=== PATIENT | female | born 1995 ===

== ENCOUNTER 2025-06-28 14:30 | Inpatient (IN) | payer OTHER ==
[~2025-06-28] VITALS: Ht 172.7 cm; Wt 3.6 kg
[2025-06-28 14:30] LABS: BASO % 0.1 % (0.1-1.2); EOS # 0.05 (0.04-0.54); EOS % 0.5 % (0.7-7.0); LYMPH # 1.89 (1.18-3.74); LYMPH % 19.9 % (19.3-53.1); MEAN PLATELET VOLUME 10.00 fl (9.4-12.4); MONO # 0.73 (0.24-0.82); MONO % 7.7 % (4.7-12.5); NEUT # 6.78 (1.56-6.13); NEUT % 71.5 % (34.0-71.1); RED CELL DISTRIBUTION WIDTH 13.4 % (11.6-14.4); URINE APPEARANCE Clear; URINE BILIRRUBIN Negative (NEGATIVE); URINE BLOOD Negative; URINE COLOR Yellow; URINE GLUCOSE Negative (NEGATIVE); URINE KETONE Negative (NEGATIVE); URINE LEUKOCYTE Small; URINE NITRATE Negative; URINE PROTEIN Negative (NEGATIVE); URINE UROBILINOGEN 1.0 E.U./dl
[~2025-06-28 14:30] MED LIST: PRENATABS RX T1 EACH PO
[2025-06-28 14:31] LABS: URINE BACTERIA 988.3 uL (0.0-1933); URINE EPITHELIAL CELLS 45.5 uL (0.0-38.8); URINE RBC 3.1 uL (0.0-20.8); URINE WBC 68.2 uL (0.0-23.2)
[2025-06-28 14:34] LABS: URINE CAST 0.42 uL (0.0-1.40)
[2025-06-28 15:04] LABS: INR 0.96
[2025-06-28 15:12] LABS: ALT/SGPT 25.0 U/L (12-78); AST/SGOT 13.0 U/L (15-37); BILIRUBIN TOTAL 0.46 mg/dL (0.3-1.2); BUN CREA RATIO 14.0 (7.0-25.0); CREATININE SERUM 0.49 mg/dL (0.55-1.02); GFR 147.3; GLOBULINA 3.9 G/DL (2.4-3.5); GLUCOSE FASTING 75.0 mg/dL (65-100); OSMOLALITY SERUM 276.0 MOSM/KG (275-295)
[2025-07-01 05:31] VITALS: BP 128/82
[2025-07-01] MEDS ORDERED: CEFAZOLIN SODIUM 1,000 MG VIAL ONE ×2 (06:41→06:42)
[2025-07-01] MEDS ORDERED: ERYTHROMYCIN BASE OPHT 1GM EACH TUBE OP ONE (07:20)
[2025-07-01] MEDS ORDERED: OXYTOCIN 10 UNITS/ML VIAL ONE (07:20)
[2025-07-01] MEDS ORDERED: MORPHINE SULFATE 4 MG/ML VIAL IV PRN (14:15)
[2025-07-01 18:19] VITALS: BP 131/80
[2025-07-02] VITALS: BP 120/80
[2025-07-02 02:03] LABS: BASO % 0.3 % (0.1-1.2); EOS # 0.09 (0.04-0.54); EOS % 0.9 % (0.7-7.0); LYMPH # 1.75 (1.18-3.74); LYMPH % 16.8 % (19.3-53.1); MEAN PLATELET VOLUME 10.10 fl (9.4-12.4); MONO # 0.83 (0.24-0.82); MONO % 8.0 % (4.7-12.5); NEUT # 7.67 (1.56-6.13); NEUT % 73.7 % (34.0-71.1); RED CELL DISTRIBUTION WIDTH 13.1 % (11.6-14.4)
[2025-07-02 06:39] VITALS: BP 124/80
[2025-07-02 08:19] VITALS: BP 123/80
[2025-07-02] MEDS ORDERED: OxyCODONE HCL 5 MG TABLET (ROXICODONE) PO SCH (09:00)
[2025-07-02 16:00] VITALS: BP 126/80
[2025-07-03] VITALS: BP 115/74
[2025-07-03 08:00] VITALS: BP 112/73
[2025-07-03] MEDS ORDERED: DOCUSATE SODIUM 100MG CAP PO SCH (09:00)
[2025-07-03] MEDS ORDERED: SIMETHICONE 125 MG CAPSULE PO SCH (09:00)
[2025-07-03 18:33] VITALS: BP 127/84
[2025-07-04 00:30] VITALS: BP 111/68
[2025-07-04] MEDS ORDERED: IBUPROFEN800 MG PO (07:50)
[2025-07-04 08:35] VITALS: BP 118/76
== END 2025-07-04 18:04 | disposition home or self-care (01) | DRG 785 ==
LOC: O/R 07-01 05:22 → OB/GYN 07-01 05:22
PROVIDERS: ADMIT Specialist; ATTEND Specialist
PROC: 0UB70ZZ Excision of Bilateral Fallopian Tubes, Open Approach (ICD-10-PCS; 2025-07-01)
PROC: 4A1HXCZ Monitoring of Products of Conception, Cardiac Rate, External Approach (ICD-10-PCS; 2025-07-01)
PROC: 10D00Z1 Extraction of Products of Conception, Low, Open Approach (ICD-10-PCS; principal; 2025-07-01 08:45)
DX: O34.211 Maternal care for low transverse scar from previous cesarean delivery (principal); Z3A.37 37 weeks gestation of pregnancy; Z37.0 Single live birth; Z30.2 Encounter for sterilization